=== PATIENT | female | born 1980 | race Hispanic/Latino ===

== ENCOUNTER 2020-07-16 08:32 | Outpatient (CLI) | payer BC ==
--- NOTE | 2020-07-16 13:26 | NM ---
Radionucleotide parathyroid scan with SPECT imaging HISTORY: Hyperparathyroidism. FINDINGS: Physiologic uptake of radiotracer within the thyroid bed and salivary glands. 1 hour and 2 hour delayed images show good washout of radiotracer from the thyroid bed. No residual f oci of abnormal uptake within the lower neck or upper mediastinum. IMPRESSION : No scintigraphic evidence of parathyroid adenoma.
== END 2020-07-16 08:33 | disposition home or self-care (01) ==
LOC: NM 08:32
PROVIDERS: ATTEND Family Medicine
DX: E21.3 Hyperparathyroidism, unspecified (principal)
CPT/HCPCS: 78072; A9500

== ENCOUNTER 2020-09-24 07:37 | Outpatient (CLI) | payer BC ==
--- NOTE | 2020-09-24 09:11 | MRI ---
MRI LOWER EXTREMITY JOINT RIGHT WITHOUT CONTRAST: DATE: 09/24/2020 7:56 AM. INDICATION: Right great toe metatarsal head and bunion pain. COMPARISON: None. FINDING: Motion artifact limits image detail. The surface markers was placed over the region of pain involving the great toe metatarsal head. This surface marker overlies a small marginal osteophyte. There is mild great toe MTP osteoarthritic change. Mild scattered osteoarthritic changes seen involving the forefoot. The visualized great toe s esamoids demonstrate normal signal intensity. No large joint effusion is evident. The visualized tendons of the great toe appear within normal limits. Visualized intrinsic foot musculature appears w ithin normal limits. The plantar fascia is normal-appearing. The Lisfranc ligament is intact. IMPRESSION: Mild great toe MTP osteoarthrosis. Transcribed Date/Time: 09/24/2020 9:31 AM
--- NOTE | 2020-09-24 09:13 | MRI ---
MRI LOWER EXTREMITY JOINT LEFT WITHOUT CONTRAST: DATE: 09/24/2020 8:30 AM. INDICATION: Bilateral bunion foot pain. COMPARISON: None. FINDING: Motion artifact slightly limits image detail. A surface marker was placed over the dorsal medial aspect of the great toe MTP joint in the region of pain. No suspicious signal abnormality is grossly evident. There is mild great toe MTP osteoarthrosis. Ther e is mild metatarsus primus varus AND hallux valgus deformity of the first ray. There are scattered IP osteoarthrosis of the foot. There is some mild nonspecific subchondral edema involving the cuboid. The visualized Lisfranc ligament appears intact. Visualized flexor and extensor tendons of the foot appear within normal limits. The intrinsic foot musculature appears within normal limits. The vi sualized plantar fascia appears within normal limits. IMPRESSION: 1. Mild great toe MTP osteoarthrosis. 2. Mild bunion deformity of the first ray. 3. Nonspecific bone marrow edema in the cuboid may reflect some mild stress reaction. Recommend corre lation with clinical examination. No visible fracture is evident. Transcribed Date/Time: 09/24/2020 9:34 AM
== END 2020-09-24 07:38 | disposition home or self-care (01) ==
LOC: MRI 07:37
DX: M19.071 Primary osteoarthritis, right ankle and foot (principal); M19.072 Primary osteoarthritis, left ankle and foot; M20.12 Hallux valgus (acquired), left foot; M20.11 Hallux valgus (acquired), right foot; M21.6X2 Other acquired deformities of left foot